=== PATIENT | female | born 1940 | race Caucasian/White ===

== ENCOUNTER 2024-01-05 08:52 | Inpatient (IN) | payer MEDICARE, BC, SELFPAY ==
[2024-01-02] VITALS (11 sets, daily range): BP systolic 118–161; BP diastolic 54–90; BMI 30.9
[2024-01-02 14:26] LABS: % Basophils 0.6 % (0-2); % Immature Granulocytes 0.5 % (0-0.5); % Lymphocytes 9.2 % (20.5-51.1); % Monocytes 12.7 % (1.7-9.3); Absolute Basophils 0.1 10^3/uL (0-0.2); Absolute Immature Granulocytes 0.1 10^3/uL (0-0.05); Absolute Monocytes 1.4 10^3/uL (0.1-0.6); Absolute Neutrophils 8.4 10^3/uL (1.4-6.5); Hematocrit 45.1 % (37.0-47.0); Hemoglobin 15.3 g/dL (12.0-16.0); Mean Corp Hgb Conc. 33.9 g/dL (33.0-37.0); Mean Corpuscular Hgb 30.3 pg (27.0-31.0); Mean Corpuscular Volume 89.3 fL (81.0-99.0); Mean Platelet Volume 10.8 fL (7.4-10.4); Nucleated Red Blood Cells % 0 %; Platelet Count 181 10^3/uL (130-400); Red Blood Cell Count 5.05 10^6/uL (4.20-5.40); Red Cell Dist. Width 15.6 % (11.5-14.5); White Blood Cell Count 10.9 10^3/uL (4.8-10.8)
[2024-01-02 14:30] LABS: COVID-19 Antigen Positive (Negative)
[2024-01-02 14:40] LABS: ALT (SGPT) 87 U/L (0-35); AST (SGOT) 100 U/L (14-36); Albumin 3.9 g/dl (3.5-5.0); Alkaline Phosphatase 79 U/L (38-126); Blood Urea Nitrogen 18 mg/dl (7-17); Calcium 9.2 mg/dl (8.4-10.2); Carbon Dioxide 23 mmol/L (22-30); Chloride 105 mmol/L (98-107); Glucose 150 mg/dl (70-99); Potassium 3.9 mmol/L (3.5-5.1); Sodium 137 mmol/L (135-145); Total Bilirubin 1.2 mg/dl (0.2-1.3); Total Protein 6.7 g/dl (6.3-8.2); eGFR > 60.00
--- NOTE | 2024-01-02 17:47 | ED.GENMED ---
History of Present Illness
General
Chief Complaint: Weakness
Time Seen by Provider: 01/02/24 17:29
Travel History
Have you had any contact with someone who has COVID-19?: No
Do you have any symptoms of coronavirus? Fever > 100 degrees, chills, cough, shortness of breath, sore throat, loss of taste or smell, muscle aches, or headache?: No
History of Present Illness
History of Present Illness:
83-year-old female with history of CHF and HTN presents to the emergency department for evaluation of severe weakness. Patient resides at home with her daughter, typically is able to get herself up out of a chair but was unable to stand even with
assistance today. Patient is noted to be lethargic but arouses to voice, she denies any complaints at the current time. P.o. intake over the weekend notably diminished. Multiple people in the household positive for influenza
Past History
Past History
ED Past Medical History: HTN and Hypercholesterolemia; Negative IDDM, NIDDM, PR or Renal failure
Social History
Tobacco: Non-smoker
Alcohol: None
Drug: None
Living: with family
Employment: Retired
Family History
Family History: Hypertension
Review of Systems
Review of Systems
Allergies reviewed?: Yes
All Other Systems: ROS reviewed and negative except as documented in HPI and ROS
Phy Exam
Physical Exam
Physical Exam:
GEN: Well appearing, NAD, WDWN
HEENT: Oral mucosa moist, no scleral icterus
Cardiac: Regular rate and rhythm, no murmur
Lung: No respiratory distress, no tachypnea, lungs clear to auscultation bilaterally
MSK: No gross deformity or injuries
Skin: Good color, no pallor or jaundice, no rashes
Neuro: Alert to self and place only, disoriented to time. Close all extremities freely without limitation however appears globally weak, no aphasia or dysarthria
Psych: Calm, cooperative
Course
Orders/Labs/Results
Orders:
Orders
01/02/24 14:18
COVID-19 Antigen Urgent
Source: Nasal Swab
Complete Blood Count/With Diff Urgent
Comprehensive Metabolic Panel Urgent
Influenza A+B Rapid Molecular Urgent
CONNIE Source: Nasal Swab
Specimen Description:
01/02/24 17:57
Urinalysis Reflex To Culture Urgent
0.9% Sodium Chloride 500 ml [Nss] 500 ml IV BOLUS
CR Chest - 2 Views Urgent
Comment:
Reason For Exam: covid SOB
01/02/24 17:58
CT Head W/o Iv Contrast Urgent
Comment:
Reason For Exam: AMS
01/02/24 18:29
Venous Blood Gas Urgent
%Oxygen/Room Air: 94
01/02/24 21:09
Admit/Transfer Patient As Directed
Co-Sign Provider:
Level of Care: Observation services
Assign to:: Medical/Surgical
Physician / Group: con
Diagnosis: covid
Code Status As Directed
Resuscitation Status: Full Code
Abnormal Lab Results
01/02/24 01/02/24
14:18 18:29
WBC 10.9 H 10^3/uL
(4.8-10.8)
RDW 15.6 H %
(11.5-14.5)
MPV 10.8 H fL
(7.4-10.4)
Abs Immat Gran (auto) 0.1 H 10^3/uL
(0-0.05)
Absolute Neuts (auto) 8.4 H 10^3/uL
(1.4-6.5)
Absolute Lymphs (auto) 1.0 L 10^3/uL
(1.2-3.4)
Absolute Monos (auto) 1.4 H 10^3/uL
(0.1-0.6)
Neutrophils % 77.0 H %
(42.2-75.2)
Lymphocytes % 9.2 L %
(20.5-51.1)
Monocytes % 12.7 H %
(1.7-9.3)
VBG pCO2 51 H mmHg
(35-48)
VBG pO2 66 H mmHg
(30-50)
BUN 18 H mg/dl
(7-17)
Glucose 150 H mg/dl
(70-99)
AST 100 H U/L
(14-36)
ALT 87 H U/L
(0-35)
SARS-CoV-2 Antigen Positive A
(Negative)
01/02/24 14:18
01/02/24 14:18
Vital Signs
Initial and Last Documented VS:
Initial Vital Signs
Temp Pulse Resp BP Pulse Ox
98.6 F 62 16 149/90 98
01/02/24 13:52 01/02/24 13:52 01/02/24 13:52 01/02/24 13:52 01/02/24 13:52
Last Documented Vital Signs
Temp Pulse Resp BP Pulse Ox
98.6 F 60 23 152/67 97
01/02/24 13:52 01/02/24 20:45 01/02/24 19:00 01/02/24 20:00 01/02/24 20:15
MDM/Problems Addressed
MDM/Problems Addressed:
Patient is profoundly weak and somewhat confused off her baseline. This is likely on the basis of COVID-19. She is not suitable to discharge home as she cannot manage independently. Will admit to the hospitalist service for further management.
She is not hypoxic
*Critical Care Note
Total Time (30-74mins, 75-104mins- exclusive of procedures): Not Applicable
ED Attending Note
-
Portions of this chart may have been created with voice recognition software.� Occasional wrong word or��sound alike� substitutions may have occurred due to the inherent limitations of voice recognition software.
Discharge Plan
Departure
Patient Disposition: Admit
Date of Disposition: 01/02/24
Time of Disposition: 20:46
Presentation/result/management discussed w/ accepting MD/DO: Hospitalist
Discharge Problem:
COVID-19, Generalized weakness
Prescriptions:
No Action
ezetimibe 10 MG tablet
10 mg PO DAILY
losartan 50 MG tablet
50 mg PO DAILY
fluticasone propion-salmeterol [Advair Diskus] 1 EACH blister with device
1 puff inhalation BID
labetalol 200 MG tablet
200 mg PO BID
hydralazine 25 MG tablet
25 mg PO BID
meclizine 25 MG tablet
25 mg PO Q8HPRN PRN (Reason: vertigo/dizziness)
sodium chloride [Saline Nasal] 50 SPRAYS/45 ML aerosol,spray
1 sprays intranasal QIDPRN PRN (Reason: nasal congestion)
omeprazole magnesium [Prilosec OTC] 20 MG tablet,delayed release (DR/EC)
20 mg PO DAILY
tiotropium bromide [Spiriva with HandiHaler] 18 MCG capsule, w/inhalation device
18 mcg inhalation DAILY
vitamins A,C,R-oojo-doeomc [PreserVision AREDS] 1 CAP capsule
1 cap PO HS
cholecalciferol (vitamin D3) 2,000 UNITS tablet
2,000 units PO DAILY
atorvastatin 40 MG tablet
40 mg PO QPM Qty: 30 0RF
aspirin 81 MG tablet,chewable
81 mg PO DAILY Qty: 30 0RF
Referrals:
NONE,* [Family Provider] -
Interventions
Interventions:
*Risk Screen - Suicide Last Done: 01/02/24 17:46
*Neglect/Abuse Screening Last Done: 01/02/24 17:46
ED- Fall Risk Assessment Last Done: 01/02/24 19:50
*ED COVID-19 Vaccine History Last Done: 01/02/24 13:52
ED- Cardiac Assessment Last Done: 01/02/24 19:50
ED- Neurological Assessment Last Done: 01/02/24 19:48
ED- Pulmonary Assessment Last Done: 01/02/24 19:50
Discharge Date and Time
Print Language: VIET[place]ESE
[2024-01-02] MEDS: NSS 500 IV (18:30)
[2024-01-02 18:50] LABS: Venous Blood Gas B.E. 0 mmol/L (-4 to +4); Venous Blood Gas HCO3 26.9 mmol/L (22-27); Venous Blood Gas O2 Sat % 94.2 %; Venous Blood Gas pCO2 51 mmHg (35-48); Venous Blood Gas pH 7.33 (7.32-7.43); Venous Blood Gas pO2 66 mmHg (30-50)
--- NOTE | 2024-01-02 21:13 | HPS.HSE ---
Addendum entered and electronically signed by Sylwia Enriquez MD 01/02/24 21:54:
History of Afib. Continue Eliquis and Amiodarone.
Original Note:
Family Physician
-
Family Physician: * NONE
Chief Complaint
-
weakness
History of Present Illness
83-year-old female past medical history of type II [place], CHF, hypertension, hypercholesterolemia, COPD, GERD, CVA, presenting with severe weakness. Patient normally can get out of the chair on her own but today she was unable to even stand with
assistance. She started having weakness yesterday. Patient was lethargic but arouses to voice. She denies any complaints. Decreased p.o. intake over the weekend. She does have slight cough and sore throat and bodyaches. No chest pain, fevers
or chills. No nausea vomiting or diarrhea. Multiple family members in the household have had similar symptoms but they did not test themselves for COVID.
She did get the COVID-vaccine.
Denies smoking alcohol use.
Medical History
Past Medical History
Past Medical History: Reports Other (type II [place], CHF, hypertension, hypercholesterolemia, COPD, GERD, CVA)
Past Surgical History: Reports None
Social History
Tobacco: Non-smoker
Alcohol: None
Drug: None
Family History
Family History: Not pertinent
Allergies / Home Medications
Allergies reflects when Allergies were last updated in [facility].
Home Medications with original date entered in [facility]
Allergy/Medication List:
Allergies
Allergy/AdvReac Type Severity Reaction Status Date / Time
Penicillins Allergy Hives Verified 01/02/24 13:56
Home Medications
ezetimibe 10 mg tablet 10 mg PO DAILY 02/22/11
cholecalciferol (vitamin D3) 50 mcg (2,000 unit) tablet 2,000 units PO DAILY 08/22/17
fluticasone 250 mcg-salmeterol 50 mcg/dose blistr powdr for inhalation (Advair Diskus) 1 puff inhalation BID 08/22/17
hydralazine 25 mg tablet 25 mg PO BID 08/22/17
labetalol 200 mg tablet 200 mg PO BID 08/22/17
losartan 50 mg tablet 50 mg PO DAILY 08/22/17
meclizine 25 mg tablet 25 mg PO Q8HPRN PRN vertigo/dizziness 08/22/17
omeprazole magnesium 20 mg tablet,delayed release (Prilosec OTC) 20 mg PO DAILY 08/22/17
sodium chloride 0.65 % nasal spray aerosol (Saline Nasal) 1 sprays intranasal QIDPRN PRN nasal congestion 08/22/17
tiotropium bromide 18 mcg capsule with inhalation device (Spiriva with HandiHaler) 18 mcg inhalation DAILY 08/22/17
vitamins A,C,T-njyn-umpolf 4,296 mcg-226 mg-90 mg capsule (PreserVision AREDS) 1 cap PO HS 08/22/17
aspirin 81 mg chewable tablet 81 mg PO DAILY ##30 08/23/17
atorvastatin 40 mg tablet 40 mg PO QPM ##30 08/23/17
Review of Systems
-
History Source: Patient
A 12 point ROS was completed and negative except as noted: Yes
Constitutional: Reports No Symptoms
EENT: Reports See HPI
Respiratory: Reports See HPI
Cardiac: Reports No Symptoms
Abdomen/GI: Reports No Symptoms
: Reports No Symptoms
Musculoskeletal: Reports No Symptoms
Skin: Reports No Symptoms
Neurological: Reports No Symptoms
Endocrine: Reports No Symptoms
Hematologic/Lymphatic: Reports No Symptoms
Psych: Reports No Symptoms
Physical Exam
Vital Signs
Vital Signs
Temp Pulse Resp BP Pulse Ox
98.6 F 60 23 152/67 97
01/02/24 13:52 01/02/24 20:45 01/02/24 19:00 01/02/24 20:00 01/02/24 20:15
Physical Exam
General: Well Developed, Well Nourished and No Apparent Distress
HEENT: NormoCephalic, Moist mucous membranes and Atraumatic
Respiratory: Clear
Cardiac: S1/S2 and Regular Rhythm; No Murmur or Rub
GI: Soft, Non Tender, Non Distended and Normal Bowel Sounds; No Organomegaly
Rectal: Deferred by Provider
Musculoskeletal: No Clubbing, No Cyanosis and No Edema
Skin: No Rash
Neuro: Nonfocal/grossly intact
Laboratory Results
-
01/02/24 14:18
01/02/24 14:18
Laboratory Results
Total Bilirubin 1.2 mg/dl (0.2-1.3) 01/02/24 14:18
AST 100 U/L (14-36) H 01/02/24 14:18
ALT 87 U/L (0-35) H 01/02/24 14:18
Alkaline Phosphatase 79 U/L (38-126) 01/02/24 14:18
Data Reviewed
-
Lab Data: Labs Reviewed by me
Old Records: Reviewed
Impression/Plan
-
IMPRESSION:
PLAN:
# COVID infection
-Influenza negative
-Chest x-ray no evidence of cardiopulmonary disease
-Patient not hypoxic
-CT head shows no acute abnormality
-PT/OT
# Transaminitis secondary to COVID
-Continue to monitor
History of type II [place]
-Continue aspirin
Chronic HFpEF
Essential hypertension
-Continue hydralazine, labetalol, losartan
Hypercholesterolemia
-Continue statin, Zetia
COPD
-Continue Advair, Spiriva
GERD
-Continue omeprazole
History of CVA
-Continue aspirin, statin
Full code
DVT prophylaxis�heparin
Regular diet
[2024-01-03] VITALS (8 sets, daily range): BP systolic 162–191; BP diastolic 70–93; BMI 30.9
[2024-01-03] MEDS: LIPITOR 40 MG PO (00:42)
[2024-01-03 06:51] LABS: % Basophils 0.7 % (0-2); % Eosinophils 0.1 % (0-6); % Immature Granulocytes 0.7 % (0-0.5); % Lymphocytes 12.7 % (20.5-51.1); % Monocytes 13.9 % (1.7-9.3); % Neutrophils 71.9 % (42.2-75.2); Absolute Basophils 0.1 10^3/uL (0-0.2); Absolute Immature Granulocytes 0.1 10^3/uL (0-0.05); Absolute Lymphocytes 0.9 10^3/uL (1.2-3.4); Absolute Neutrophils 5.2 10^3/uL (1.4-6.5); Hematocrit 38.8 % (37.0-47.0); Hemoglobin 13.2 g/dL (12.0-16.0); Mean Corpuscular Hgb 30.4 pg (27.0-31.0); Mean Corpuscular Volume 89.4 fL (81.0-99.0); Nucleated Red Blood Cells % 0 %; Red Blood Cell Count 4.34 10^6/uL (4.20-5.40); Red Cell Dist. Width 15.7 % (11.5-14.5); White Blood Cell Count 7.3 10^3/uL (4.8-10.8)
[2024-01-03 07:07] LABS: ALT (SGPT) 511 U/L (0-35); AST (SGOT) 601 U/L (14-36); Albumin 3.2 g/dl (3.5-5.0); Alkaline Phosphatase 71 U/L (38-126); Blood Urea Nitrogen 21 mg/dl (7-17); Calcium 8.7 mg/dl (8.4-10.2); Carbon Dioxide 23 mmol/L (22-30); Chloride 110 mmol/L (98-107); Estimated Creatinine Clearance 59 ml/min; Glucose 87 mg/dl (70-99); Potassium 3.7 mmol/L (3.5-5.1); Sodium 137 mmol/L (135-145); Total Bilirubin 1.4 mg/dl (0.2-1.3); Total Protein 5.7 g/dl (6.3-8.2); eGFR > 60.00
[2024-01-03 08:07] LABS: Mean Platelet Volume 10.2 fL (7.4-10.4)
[2024-01-03 08:08] LABS: Platelet Count 129 10^3/uL (130-400)
[2024-01-03] MEDS: PACERONE 200 MG PO (08:49)
[2024-01-03] MEDS: ZETIA 10 MG PO (08:56)
[2024-01-03] MEDS: SYNTHROID 25 MCG PO (08:56)
[2024-01-03] MEDS: ELIQUIS 5 MG PO ×2 (08:56→20:24)
[2024-01-03] MEDS: LOPRESSOR 100 MG PO ×2 (08:56→20:24)
[2024-01-03] MEDS: COZAAR 25 MG PO (08:56)
--- NOTE | 2024-01-03 12:09 | W.PN.HOSP.TC ---
Today's Communication/Plan
-
See plan above
Assessment / Plan
Assessment / Plan
# COVID infection
-Influenza negative
-Chest x-ray no evidence of cardiopulmonary disease
-Patient not hypoxic
-CT head shows no acute abnormality
-PT/OT
- Will consult ID for indication of treatments especially with severe transaminitis. No indication of COVID-19 therapeutics from pulmonary standpoint.
# Acute Transaminitis which is worsening. Significant rise. No GI symptoms.
-COVID-19 candidate transaminitis better elevation is significant and would evaluate further. Check an ultrasound of the biliary tract. Hold Lipitor. Consult GI. Check hepatitis serology.
# ? Syncope-based on patient history. Trying to reach the daughter to obtain more information. Check EKG. Check orthostatic blood pressure readings. Follow on telemetry.
History of type II [place]
-Continue aspirin
Chronic HFpEF-clinically compensated
Essential hypertension
-Continue hydralazine, labetalol, losartan
Hypercholesterolemia
-Continue statin, Zetia
COPD
-Continue Advair, Spiriva
GERD
-Continue omeprazole
History of CVA
-Continue aspirin, statin
Full code
DVT prophylaxis�heparin
Regular diet
DW son
Await to speak to daughter
Total time spent on today's encounter was 52 minutes which included time spent in counseling the patient/family regarding diagnosis and treatment plan as listed above, goals of care, and symptom management. Case was discussed with nursing staff,
specialists, . All labs and imaging personally reviewed by me. Remainder the time spent in detailed review of previous records, lab data, imaging, and other medical provider documentation.
Anticipated Discharge: > 48 hours
Subjective/Interval History
-
Date of Service: January 03, 2024
She states she is here because she passed out at home. She has associated weakness.
She was not able to provide much details about passing out but she thinks she was in the kitchen heating up her breakfast and then she passed out ; her daughter was present apparently. She denies premonitory dizziness or lightheadedness.
Denies any chest pain or palpitations. Not short of breath.
Her granddaughter was sick over the weekend. She is with family over . She is having runny nose. Denies any sore throat or cough.
Appetite is okay but no nausea vomiting or abdominal pain. Denies any prior history of biliary disease.
No fever or chills.
Objective Data
-
Labs:
Laboratory Results
01/03/24
06:36
WBC 7.3
Hgb 13.2
Hct 38.8
Plt Count 129 L D
Sodium 137
Potassium 3.7
Chloride 110 H
Carbon Dioxide 23
BUN 21 H
Creatinine 0.7
Glucose 87
Calcium 8.7
Total Bilirubin 1.4 H
AST 601 H*
ALT 511 H*
Alkaline Phosphatase 71
Vital Signs:
Vital Signs
Temp Pulse Resp BP Pulse Ox
98.3 F 60 18 162/77 96
01/03/24 09:00 01/03/24 09:00 01/03/24 09:00 01/03/24 09:00 01/03/24 11:16
I&O
01/02/24 01/03/24 01/04/24
06:59 06:59 06:59
Intake Total 60 / 60
Balance 60 / 60
Review of Systems
-
Constitutional: Denies Fever or Chills
Genitourinary: Denies Dysuria
Neuro: Denies Dizzy or Headache
Physical Exam
-
General: No Apparent Distress
HEENT: Moist Mucous Membranes
Respiratory: Clear to Auscultation; Negative Wheezes or Crackles
Cardiac: Regular Rhythm and S1/S2
GI: Soft, Nontender, Nondistended, Normal Bowel Sounds and Other (no abodminal brusing)
Musculoskeletal: No Edema
Neuro: AO x 3 and No Motor Deficits; Negative Tremors
Psych: Calm; Negative Confused or Agitated
Data Reviewed
-
Labs: Labs Reviewed by me
--- NOTE | 2024-01-03 13:28 | CON.GI ---
Addendum entered and electronically signed by Lynn Vallejo MD 01/03/24 18:05:
I saw and examined the patient.
The CASING PULLER or PA's note was reviewed and I agree with the note.
Comment: 83 yo F pmh as below here with weakness, decreased po intake, found to be COVID + with elevated LFTs.
Patient poor historian (oriented x1-2 does not know where she sleepy, minimally answering questions).
US normal
hep studies, plt, inr ordered
trend LFTS
suspect related to covid vs questionable syncope perhaps had hypotension
Original Note:
Consultation
-
Date/Time Consultation Requested: 01/03/24 1230
Date/Time Consultation Performed: 01/03/24 1330
Requesting Provider: Raimundo Rodriguez MD
Performing Provider: JUAN Degroot, Nidia Vallejo MD
Reason for Consultation: increased LFT's
Medical History
Chief Complaint / HPI
Chief Complaint: weakness
History of Present Illness:
Pt is a 83yo present with hx CHF, afib on Eliquis, DM type II, [place], HTN, COPD, GERD, CVA presents with severe weakness with decreased oral intake over weekend. On admission noted + covid with initial LFT's with bili 1.2, AST 100, ALT 87, alk phos
79. However after admission patient with further rise in LFT's to bili 1.4, AST 601, alt 511, and alk phos 71. No hx prior liver issues. Per daughter unsure about any medication changes as just came back from [place]. She is on chronic
Midodrine but unclear when started. There was also question of syncope but daughter denies and states just sever weakness. Family admits to other family member being sick prior to onset.
She otherwise denies dysphagia, GERD, nausea, vomiting, abdominal pain, diarrhea, constipation, or rectal bleeding. Family unsure about prior EGD/colonoscopy. US with cholelithiasis and renal cysts.
Past Medical History
Past Medical History: Arrhythmias (afib on eliquis ), CHF, COPD, CVA, GERD, HTN, Hypercholesterolemia and NIDDM
Social History
Tobacco: Former Smoker
Alcohol: None
Drug: None
Living: With Family (6 months with daughter in [place] and 6 months in [place] returned 1 week ago)
Employment: Retired
Family History
Family History: Other (no family hx colon CA or liver problems)
Allergies / Home Medications
Allergy/AdvReac Type Severity Reaction Status Date / Time
Penicillins Allergy Hives Verified 01/02/24 13:56
�Medication �Instructions �Recorded
ezetimibe 10 mg tablet 10 mg PO DAILY 02/22/11
amiodarone 200 mg tablet 200 mg PO DAILY 01/02/24
apixaban 5 mg tablet (Eliquis) 5 mg PO BID 01/02/24
atorvastatin 40 mg tablet 40 mg PO HS 01/02/24
levothyroxine 25 mcg tablet 25 mcg PO DAILY 01/02/24
losartan 25 mg tablet 25 mg PO DAILY 01/02/24
metoprolol tartrate 100 mg tablet 100 mg PO BID 01/02/24
midodrine 2.5 mg tablet 2.5 mg PO TID 01/02/24
Review of Systems
-
History Source: Patient and Family
Constitutional: Reports Fatigue
EENT: Reports No Symptoms
Respiratory: Reports No Symptoms
Cardiac: Reports No Symptoms
Abdomen/GI: Reports No Symptoms
: Reports No Symptoms
Musculoskeletal: Reports No Symptoms
Neurological: Reports Weakness
Endocrine: Reports No Symptoms
Hematologic/Lymphatic: Reports No Symptoms
Vital Signs
Temp Pulse Resp BP Pulse Ox
98.3 F 60 18 183/70 93
01/03/24 09:00 01/03/24 12:49 01/03/24 12:49 01/03/24 12:49 01/03/24 12:49
Physical Exam
Exam
General: Other (elderly female with noted weakness and limited verbal in exam )
HEENT: Normocephalic and Anicteric
Respiratory: Clear
Cardiac: Regular Rhythm
GI: Soft, Non Tender and Non Distended
Musculoskeletal: No Clubbing and No Cyanosis
Skin: Warm and Dry
Neuro: Awake and Other (opens eyes to voice with lethargy in exam answers some questions appropriately)
Psych: Calm
Results
WBC 7.3 10^3/uL (4.8-10.8) 01/03/24 06:36
Hgb 13.2 g/dL (12.0-16.0) 01/03/24 06:36
Hct 38.8 % (37.0-47.0) 01/03/24 06:36
MCV 89.4 fL (81.0-99.0) 01/03/24 06:36
Plt Count 129 10^3/uL (130-400) L D 01/03/24 06:36
Absolute Neuts (auto) 5.2 10^3/uL (1.4-6.5) 01/03/24 06:36
Sodium 137 mmol/L (135-145) 01/03/24 06:36
Potassium 3.7 mmol/L (3.5-5.1) 01/03/24 06:36
Chloride 110 mmol/L (98-107) H 01/03/24 06:36
Carbon Dioxide 23 mmol/L (22-30) 01/03/24 06:36
BUN 21 mg/dl (7-17) H 01/03/24 06:36
Creatinine 0.7 mg/dL (0.6-1.0) 01/03/24 06:36
Calcium 8.7 mg/dl (8.4-10.2) 01/03/24 06:36
Total Bilirubin 1.4 mg/dl (0.2-1.3) H 01/03/24 06:36
AST 601 U/L (14-36) H* 01/03/24 06:36
ALT 511 U/L (0-35) H* 01/03/24 06:36
Alkaline Phosphatase 71 U/L (38-126) 01/03/24 06:36
Diagnostic Image Results:
01/03/24 US abdomen
1). Cholelithiasis
2.). 3.4 cm complex left renal cyst
Prior GI Procedures:
EGD: family unsure about prior testing
Colonoscopy: family unsure about prior testing
Assessment / Plan
-
Pt is a 83yo present with hx CHF, DM type II, [place], HTN, COPD, GERD, CVA presents with severe weakness with decreased oral intake over weekend. On admission noted + covid with initial LFT's with bili 1.2, AST 100, ALT 87, alk phos 79. However after
admission patient with further rise in LFT's to bili 1.4, AST 601, alt 511, and alk phos 71. 4/2 US with cholelithiasis and renal cyst.
-increased LFT's
-covid +
-diffuse weakness
-mild thrombocytopenia
-cholelithiasis
other medical problems:
-CHF
-DM
-HTN
-COPD
-GERD
-CVA
PLAN:
etiology of increased LFT's unclear --no documented hypotension since admission but diffuse weakness and hx midodrine use with possible shock liver secondary to underlying illness with covid + vs other
US abdomen stable with cholelithiasis no not duct dilation or pain on exam
check hepatitis panel
trend LFT's
add repeat platelets for am and add INR in AM
updated daughter to check any recent change in medication
pt currently on Midodrine but unclear when and why started
add TSH
-
-
Thank you for consultation and allowing me to participate in the patient's care. Please call the weatherization and housing inspector GI physician during the after hours with any questions or concerns.
--- NOTE | 2024-01-03 14:18 | CON.ID ---
Consultation
-
Date/Time Consultation Requested: January 03, 2024 1221
Date/Time Consultation Performed: January 03, 2024 1420
Requesting Provider: Dr. Raimundo Rodriguez
Performing Provider: Dr. Ronna Hernández
Reason for Consultation: COVID
Chief Complaint / Past History
Chief Complaint
Weakness
History of Present Illness
History obtained from the patient as well as from her daughter at bedside. 83-year-old female with history of diabetes mellitus, hypertension, COPD, who developed acute onset of weakness yesterday. She was unable to get up from a chair. She came
to the ER today and she tested positive for COVID. LFTs noted to be elevated. Patient is unsure when she last got her COVID-vaccine. Patient reports no headache, positive rhinorrhea, mild cough. No known fevers or chills. Appetite has been
poor. No nausea, vomiting or diarrhea. Patient's daughter and son-in-law recently ill with upper respiratory symptoms. Son-in-law tested negative for COVID. Daughter did not test herself.
Past History
Additional Past Medical History:
Diabetes mellitus type 2
Hypertension
Dyslipidemia
COPD
CVA
CHF
Allergy History:
Penicillins Allergy (Verified 01/02/24 13:56)
Hives
Medications Reviewed: Yes
Current Antibiotics:
none
Social History
Tobacco: Non-Smoker
Alcohol: None
Drug: None
Living: With Family
Family History
Family History: Not Pertinent
Review of Systems
Review of Systems
General: Change in Appetite
HEENT: Sinus Problems; Negative Headache or Pharyngitis
Cardiovascular: Negative Chest Pain
Respiratory: Cough; Negative Dyspnea or Sputum Production
Gasteroenterology: Negative Nausea or Vomiting
Genital / Urological: Negative Dysuria or Flank Pain
Endocrine: Weakness and Fatigue
Neurological: Negative Headache or Dizziness
All systems: All other systems were reviewed and were negative
Vital Signs
Temp Pulse Resp BP Pulse Ox
98.3 F 60 18 183/70 93
01/03/24 09:00 01/03/24 12:49 01/03/24 12:49 01/03/24 12:49 01/03/24 12:49
Physical Exam
Physical Exam
Constitutional: Non-toxic
Eyes: No Conjunctival Hemorrhage and Sclera Anicteric
Pharynx: Benign
Cardiovascular: Regular Rate and S1/S2
Pulmonary: Clear
Gastrointestinal: Soft, Non Tender, Non Distended and Normal Bowel Sounds
Genito-Urinary: Negative CVA Tenderness
Extremities: Negative Edema
Skin: Negative Rash
Neurological: AO x 3
Lab / Diagnostic Study Results
01/03/24 06:36
01/03/24 06:36
Abs Immat Gran (auto) 0.1 10^3/uL (0-0.05) H 01/03/24 06:36
Absolute Neuts (auto) 5.2 10^3/uL (1.4-6.5) 01/03/24 06:36
Absolute Lymphs (auto) 0.9 10^3/uL (1.2-3.4) L 01/03/24 06:36
Absolute Monos (auto) 1.0 10^3/uL (0.1-0.6) H 01/03/24 06:36
Absolute Basos (auto) 0.1 10^3/uL (0-0.2) 01/03/24 06:36
Immature Gran % 0.7 % (0-0.5) H 01/03/24 06:36
Neutrophils % 71.9 % (42.2-75.2) 01/03/24 06:36
Lymphocytes % 12.7 % (20.5-51.1) L 01/03/24 06:36
Monocytes % 13.9 % (1.7-9.3) H 01/03/24 06:36
Eosinophils % 0.1 % (0-6) 01/03/24 06:36
Basophils % 0.7 % (0-2) 01/03/24 06:36
Microbiology Results
Micro:
01/02/24 14:18 Influenza Types A & B (PAM) - Final
Nasal Swab Negative for Influenza A & B, NAAT
Negative results must be combined with clinical observations
and patient history.
Nucleic Acid Amplification test (NAAT)performed on the
[employer] platform.
01/02/24 CXR: No evidence of active cardiopulmonary disease.
01/02/[address]: No evidence of acute intracranial abnormality.
Assessment / Plan
# Symptomatic mild COVID infection
-Symptom onset 01/02/2024
-COVID + 01/03/24
- CXR normal.
-Oxygenating well.
- Avoid Paxlovid due to drug-drug interaction with her meds.
-Start molnupiravir 800mg po bid x 5 days.
-Follow clinically
# Acute transaminitis - likely due to COVID
Abd US: cholelithiasis
--- NOTE | 2024-01-03 14:36 | PTCARENOTE ---
Pt remains very drowsy, poor oral intake. Able to take meds whole w/ sips but uninterested in eating or drinking. Oriented self and 'hospital', follows simple commands, amble to turn in bed. Daughter at bedside, update given. BP remains elevated.
Michael notified of poor PO intake and BP.
[2024-01-03] MEDS: D5/0.45%NACL 1000 IV (15:16)
[2024-01-03 16:17] LABS: Direct Bilirubin 0.5 mg/dl (0.0-0.4)
--- NOTE | 2024-01-03 16:25 | CM ---
Cm reviewed medical records. CM met with patient and daughter in room. Patient confirmed demographics. Patient lives with her two daughters,(one in [place] and one in [facility]). Patient has had [employer] pay aides in the past. Patient has not
had a history of SNF> patient uses a rollator, can and raised toilet seat.
Patient does not have a PCP in [facility]. Patient's daughter would be agreeable to SNF if needed pending PT evaluation. Daughter will research SNF choices via Medicare. gov if needed.
CM confirmed with hospitalist plan for inpatient admission.
PLAN: Pending PT evaluation.
[2024-01-03 17:28] LABS: TSH 1.36 uIU/ml (0.47-4.68)
[2024-01-03] MEDS: MOLNUPIRAVIR (EUA) 800 MG PO (17:29)
--- NOTE | 2024-01-03 18:05 | W.PN.UPDATE ---
Update Note
Progress Note Update
billing purposes
[2024-01-03 18:06] LABS: Urine Albumin Trace (Neg - Trace); Urine Bilirubin Negative (Negative); Urine Character Clear (Clear); Urine Color Yellow; Urine Glucose Negative (Negative); Urine Ketone Negative (Negative); Urine Leukocyte Negative (Negative); Urine Nitrite Negative (Negative); Urine Occult Blood Negative (Negative); Urine Specific Gravity 1.025 (<1.030); Urine Urobilinogen 2+ (Neg - 1+)
[2024-01-03 20:58] LABS: Troponin I 0.018 ng/ml
[2024-01-04] VITALS (19 sets, daily range): BP systolic 119–199; BP diastolic 56–96; PULSE 61–70; O2SAT 93–94; BMI 32.5
[2024-01-04 04:46] LABS: Hemoglobin 13.4 g/dL (12.0-16.0); Mean Corp Hgb Conc. 33.5 g/dL (33.0-37.0); Mean Corpuscular Hgb 30.2 pg (27.0-31.0); Mean Corpuscular Volume 90.1 fL (81.0-99.0); Mean Platelet Volume 10.7 fL (7.4-10.4); Platelet Count 141 10^3/uL (130-400); Red Blood Cell Count 4.44 10^6/uL (4.20-5.40); Red Cell Dist. Width 15.7 % (11.5-14.5); White Blood Cell Count 5.5 10^3/uL (4.8-10.8)
[2024-01-04 05:12] LABS: Troponin I 0.016 ng/ml
[2024-01-04 05:27] LABS: ALT (SGPT) 535 U/L (0-35); AST (SGOT) 463 U/L (14-36); Albumin 3.2 g/dl (3.5-5.0); Alkaline Phosphatase 73 U/L (38-126); Blood Urea Nitrogen 19 mg/dl (7-17); Calcium 8.8 mg/dl (8.4-10.2); Carbon Dioxide 25 mmol/L (22-30); Chloride 106 mmol/L (98-107); Estimated Creatinine Clearance 68 ml/min; Glucose 100 mg/dl (70-99); Potassium 3.4 mmol/L (3.5-5.1); Sodium 136 mmol/L (135-145); Total Protein 5.8 g/dl (6.3-8.2); eGFR > 60.00
[2024-01-04 05:54] LABS: Hepatitis B Surface Antigen Negative (Negative)
[2024-01-04 05:57] LABS: Hepatitis A IgM Antibody Negative (Negative); Hepatitis B Core Ab, IgM Negative (Negative)
[2024-01-04 06:11] LABS: Hepatitis B Core Ab, Total Negative (Negative); Hepatitis B Surface Antibody Negative; Hepatitis C Antibody Negative (Negative)
[2024-01-04 06:24] LABS: Hepatitis A Antibody, Total Positive (Negative)
--- NOTE | 2024-01-04 08:36 | W.PN.GI.CBS2 ---
Addendum entered and electronically signed by Lynn Vallejo MD 01/04/24 14:59:
I saw and examined the patient.
The [employer] or PA's note was reviewed and I agree with the note.
Comment: 83 yo F here with COVID abnormal LFTs.
Suspect LFTs due to COVID.
DC planning currnetly - recommend repeat LFTs 1 week on dc.
Original Note:
Today's Communication / Plan
-
etiology of increased LFT's unclear --no documented hypotension but did miss midodrine with hx orthostatic hypotension AM of admission with possible shock liver, vs covid related vs other
US abdomen stable with cholelithiasis no not duct dilation and continued no pain on exam
more alert and eating breakfast this am but still confused to place
hepatitis panel neg
trend LFT's-- improved trend today -- on discharge repeat LFT 1-2 weeks if not normal consider further serology work up
platelets normal, INR 1.4 in setting of chronic Eliquis use
TSH normal 1.36
per ID -- started molnupiravir 800mg po bid x 5 days
updated daughter
Assessment / Plan
-
Pt is a 83yo present with hx CHF, afib on Eliquis, orthostatic hypotension, DM type II, [place], HTN, COPD, GERD, CVA presents with severe weakness with decreased oral intake over weekend. On admission noted + covid with initial LFT's with bili 1.2,
AST 100, ALT 87, alk phos 79. However after admission patient with further rise in LFT's to bili 1.4, AST 601, alt 511, and alk phos 71. 4/2 US with cholelithiasis and renal cyst.
-increased LFT's
-covid +
-diffuse weakness
-mild thrombocytopenia
-cholelithiasis
-hx orthostatic hypotension on chronic midodrine last 2 years
other medical problems:
-afib on Eliquis
-CHF
-DM
-HTN
-COPD
-GERD
-CVA
Laboratory Tests
01/02/24 01/03/24 01/04/24
14:18 06:36 04:26
Total Bilirubin 1.2 1.4 H 1.0
Direct Bilirubin 0.5 H
AST 100 H 601 H* 463 H
ALT 87 H 511 H* 535 H*
Alkaline Phosphatase 79 71 73
PLAN:
etiology of increased LFT's unclear --no documented hypotension but did miss midodrine with hx orthostatic hypotension AM of admission with possible shock liver, vs covid related vs other
US abdomen stable with cholelithiasis no not duct dilation and continued no pain on exam
more alert and eating breakfast this am but still confused to place
hepatitis panel neg
trend LFT's-- improved trend today on discharge repeat LFT 1-2 weeks if not normal consider further serology work up
platelets normal, INR 1.4 in setting of chronic Eliquis use
TSH normal 1.36
per ID -- started molnupiravir 800mg po bid x 5 days
updated daughter
Subjective
Subjective
Date of Service: January 04, 2024
01/01 small brown stool, on regular diet still with confusion, slight improved alterness
Objective
Data Reviewed
Laboratory Data:
Laboratory Results
01/04/24 04:26
01/04/24 04:26
Laboratory Results
PT 17.0 Sec (11.4-14.6) H 01/04/24 04:26
INR 1.40 01/04/24 04:26
Total Bilirubin 1.0 mg/dl (0.2-1.3) 01/04/24 04:26
AST 463 U/L (14-36) H 01/04/24 04:26
ALT 535 U/L (0-35) H* 01/04/24 04:26
Alkaline Phosphatase 73 U/L (38-126) 01/04/24 04:26
Vital Signs and I&O:
Vital Signs
Temp Pulse Resp BP Pulse Ox
98.3 F 60 24 189/72 94
01/04/24 03:05 01/04/24 03:00 01/04/24 03:00 01/04/24 03:00 01/04/24 03:00
I&O
01/03/24 01/04/24 01/05/24
06:59 06:59 06:59
Intake Total 60 / 60
Balance 60 / 60
Physical Exam
Physical Exam
HEENT: Anicteric
Cardiology: Normal Sinus Rhythm
Pulmonary: Clear
GI: Soft, Non Distended and Non Tender
Extremities: No Edema
Neuro: Other (confused, more awake than on exam 01/02 )
[2024-01-04] MEDS: COZAAR 25 MG PO (10:09)
[2024-01-04] MEDS: LOPRESSOR 100 MG PO ×2 (10:09→21:15)
[2024-01-04] MEDS: PACERONE 200 MG PO (10:09)
[2024-01-04] MEDS: ELIQUIS 5 MG PO ×2 (10:09→21:16)
[2024-01-04] MEDS: MOLNUPIRAVIR (EUA) 800 MG PO ×2 (10:10→21:16)
[2024-01-04] MEDS: D5/0.45%NACL 1000 IV (10:14)
[2024-01-04] MEDS: ZETIA 10 MG PO (10:24)
[2024-01-04] MEDS: SYNTHROID PO (11:20)
--- NOTE | 2024-01-04 11:44 | W.PN.HOSP.TC ---
Addendum entered and electronically signed by Raimundo Rodriguez MD 01/04/24 11:53:
Hypokalemia -replete
Original Note:
Today's Communication/Plan
-
DC planning
Assessment / Plan
Assessment / Plan
# COVID infection
-Influenza negative
-Chest x-ray no evidence of cardiopulmonary disease
-Patient not hypoxic
-CT head shows no acute abnormality
-PT/OT
-cw antiviral for 5 days per ID .
# Acute Transaminitis which is worsening. Significant rise. No GI symptoms.
-COVID-19 can cause transaminitis but elevation is significant and would evaluate further. ultrasound of the biliary tract shows no biliary obstruction. Cholelithiasis noted. Improving LFTs. Possibly related to viral infection. Repeat next
week. Appreciate GI input. Hold statins till next blood test.
# No Syncope-based on story from daughter .
History of type II [place]
-Continue aspirin
Chronic HFpEF-clinically compensated
Essential hypertension
-Continue metoprolol, losartan -consider going up on Losartan as needed
- Hold Midodrine with supine hypertension
Hypercholesterolemia
-Continue Zetia, hold statins
COPD
-Continue Advair, Spiriva
GERD
-Continue omeprazole
History of CVA
-Continue aspirin,hold statin
Full code
DVT prophylaxis�heparin
Regular diet
DW daughter at bedside
PT recommends rehab
CM to look into disposition
Medically stable for DC if bed available
Anticipated Discharge: Today
Subjective/Interval History
-
Date of Service: January 04, 2024
Patient starting to feel well. More energy. Last week. Able to ambulate to the bathroom.
Denies any fever. Mild cough. No shortness of breath.
Improved appetite. No nausea vomiting. No abdominal pain.
Discussed with daughter at bedside who was with the patient. Admission. No evidence of syncope. No passing out. She was just weak and went down.
Objective Data
-
Labs:
Laboratory Results
01/04/24
04:26
WBC 5.5
Hgb 13.4
Hct 40.0
Plt Count 141
PT 17.0 H
INR 1.40
Sodium 136
Potassium 3.4 L
Chloride 106
Carbon Dioxide 25
BUN 19 H
Creatinine 0.6
Glucose 100 H
Calcium 8.8
Total Bilirubin 1.0
AST 463 H
ALT 535 H*
Alkaline Phosphatase 73
Vital Signs:
Vital Signs
Temp Pulse Resp BP Pulse Ox
98.3 F 60 24 189/72 94
01/04/24 03:05 01/04/24 03:00 01/04/24 03:00 01/04/24 03:00 01/04/24 03:00
I&O
01/03/24 01/04/24 01/05/24
06:59 06:59 06:59
Intake Total 60 / 60
Balance 60 / 60
Review of Systems
-
Constitutional: Denies Fever
EENT: Denies Sore Throat
Cardiac: Denies Chest Pain
Neuro: Denies Dizzy or Headache
Physical Exam
-
General: No Apparent Distress
HEENT: Moist Mucous Membranes
Respiratory: Clear to Auscultation
Cardiac: Regular Rhythm and S1/S2; Negative Tachycardic
GI: Soft, Nontender, Nondistended and Normal Bowel Sounds
Neuro: AO x 3
Psych: Calm; Negative Confused or Agitated
Data Reviewed
-
Labs: Labs Reviewed by me
[2024-01-04] MEDS: KCL 20 MEQ PO (12:53)
--- NOTE | 2024-01-04 14:59 | W.PN.UPDATE ---
Update Note
Progress Note Update
billing purposes
--- NOTE | 2024-01-04 15:41 | W.PN.ID1 ---
Date of Service
Date of Service: January 04, 2024
Today's Communication
Continue molnupiravir 800mg po bid to complete 5 days.
Assessment / Plan
# Symptomatic mild COVID infection
-Symptom onset 01/02/2024
-COVID + 01/03/24
- CXR normal.
-Oxygenating well.
- Avoid Paxlovid due to drug-drug interaction with her meds.
- Continue molnupiravir 800mg po bid to complete 5 days.
-Follow clinically
# Acute transaminitis - likely due to COVID
LFT's trending down
Abd US: cholelithiasis
Chief Complaint
-: Other (COVID)
Subjective / Review of Systems
More alert today. Pt reports feeling better. Daughter at bedside who agrees.
Vital Signs / Physical Exam
Vital Signs
Vital Signs
Temp Pulse Resp BP Pulse Ox
98.5 F 62 16 192/96 96
01/04/24 15:29 01/04/24 15:29 01/04/24 15:29 01/04/24 15:29 01/04/24 15:29
Physical Exam
Constitutional: No Acute Distress and Comfortable
Pulmonary: Clear
Gastrointestinal: Soft, Non Tender and Non Distended
Neurological: AO x 3
Objective Data
Lab Data
Lab Results
01/04/24 04:26
01/04/24 04:26
PT 17.0 Sec (11.4-14.6) H 01/04/24 04:26
INR 1.40 01/04/24 04:26
Estimated Creat Clear 68 ml/min 01/04/24 04:26
Total Bilirubin 1.0 mg/dl (0.2-1.3) 01/04/24 04:26
AST 463 U/L (14-36) H 01/04/24 04:26
ALT 535 U/L (0-35) H* 01/04/24 04:26
Alkaline Phosphatase 73 U/L (38-126) 01/04/24 04:26
Most recent labs reviewed.
Micro Results:
01/02/24 14:18 Influenza Types A & B (PAM) - Final
Nasal Swab Negative for Influenza A & B, NAAT
Negative results must be combined with clinical observations
and patient history.
Nucleic Acid Amplification test (NAAT)performed on the
[employer] platform.
01/02/24 CXR: No evidence of active cardiopulmonary disease.
01/02/[address]: No evidence of acute intracranial abnormality.
--- NOTE | 2024-01-04 16:16 | PTCARENOTE ---
Received patient at 1515 accompanied by daughter. Awake and alert , did not know time. Denied any pain or discomfort at present. Oriented to unit, dietary , nurse call wilkerson , tv remote. Resting at present , denies any pain or discomfort
[2024-01-05] MEDS: APRESOLINE 5 MG IV ×2 (00:25→02:31)
[2024-01-05 02:01] VITALS: BP 195/77
[2024-01-05 02:08] VITALS: BP 192/72
[2024-01-05 06:00] VITALS: BMI 30.2
[2024-01-05] MEDS: SYNTHROID 25 MCG PO (06:17)
[2024-01-05 07:30] VITALS: BP 132/73
[2024-01-05 07:53] LABS: Chloride 104 mmol/L (98-107); Potassium 3.6 mmol/L (3.5-5.1); Sodium 137 mmol/L (135-145)
[2024-01-05 08:00] VITALS: BP 132/73; BP 190/82; PULSE 61
[2024-01-05 08:02] LABS: ALT (SGPT) 389 U/L (0-35); AST (SGOT) 234 U/L (14-36); Albumin 3.3 g/dl (3.5-5.0); Alkaline Phosphatase 80 U/L (38-126); Blood Urea Nitrogen 15 mg/dl (7-17); Calcium 8.8 mg/dl (8.4-10.2); Carbon Dioxide 21 mmol/L (22-30); Direct Bilirubin 0.5 mg/dl (0.0-0.4); Estimated Creatinine Clearance 67 ml/min; Glucose 121 mg/dl (70-99); Total Bilirubin 1.1 mg/dl (0.2-1.3); eGFR > 60.00
[2024-01-05] MEDS: COZAAR 25 MG PO (08:37)
[2024-01-05] MEDS: ZETIA 10 MG PO (08:37)
[2024-01-05] MEDS: ELIQUIS 5 MG PO ×2 (08:37→20:09)
[2024-01-05] MEDS: MOLNUPIRAVIR (EUA) 800 MG PO ×2 (08:40→20:08)
[2024-01-05] MEDS: LOPRESSOR 100 MG PO ×2 (08:40→20:09)
[2024-01-05] MEDS: PACERONE 200 MG PO (08:40)
--- NOTE | 2024-01-05 11:26 | W.PN.HOSP.TC ---
Today's Communication/Plan
-
DC
Assessment / Plan
Assessment / Plan
# COVID infection
-Influenza negative
-Chest x-ray no evidence of cardiopulmonary disease
-Patient not hypoxic
-CT head shows no acute abnormality
-PT/OT
-cw antiviral for 5 days per ID .
# Acute Transaminitis which is worsening. Significant rise. No GI symptoms.
-COVID-19 can cause transaminitis but elevation is significant and would evaluate further. ultrasound of the biliary tract shows no biliary obstruction. Cholelithiasis noted. Improving LFTs. Possibly related to viral infection. Repeat next
week. Appreciate GI input. Hold statins till next blood test.
History of type II [place]
-Continue aspirin
Chronic HFpEF-clinically compensated
Essential hypertension
- Continue metoprolol, increase losartan
- Hold Midodrine with supine hypertension
Hypercholesterolemia
-Continue Zetia, hold statins
COPD
-Continue Advair, Spiriva
GERD
-Continue omeprazole
History of CVA
-Continue aspirin,hold statin
Full code
DVT prophylaxis�heparin
Regular diet
DW daughters at bedside
PT recommends rehab
CM to look into disposition
Medically stable for DC
Anticipated Discharge: Today
Subjective/Interval History
-
Date of Service: January 05, 2024
Improving but still not at baseline strength. PT recommending rehab.
No fever or chills. No sore throat. Not short of breath.
No nausea vomiting. Tolerating diet.
She has macular degeneration. She had injections to the eye for a very long time. She experienced visual hallucination today .
Objective Data
-
Labs:
Laboratory Results
01/05/24
07:12
Sodium 137
Potassium 3.6
Chloride 104
Carbon Dioxide 21 L
BUN 15
Creatinine 0.6
Glucose 121 H
Calcium 8.8
Total Bilirubin 1.1
AST 234 H
ALT 389 H
Alkaline Phosphatase 80
Vital Signs:
Vital Signs
Temp Pulse Resp BP Pulse Ox
98.6 F 84 24 132/72 94
01/05/24 07:30 01/05/24 08:37 01/05/24 07:30 01/05/24 08:37 01/05/24 07:30
I&O
01/04/24 01/05/24 01/06/24
06:59 06:59 06:59
Intake Total 600 / 600
Balance 600 / 600
Review of Systems
-
Constitutional: Denies Fever
EENT: Denies Sore Throat
Neuro: Denies Dizzy
Physical Exam
-
General: No Apparent Distress
HEENT: Moist Mucous Membranes
Respiratory: Clear to Auscultation
Cardiac: Regular Rhythm and S1/S2
GI: Soft
Neuro: AO x 3
Psych: Calm
Data Reviewed
-
Labs: Labs Reviewed by me
--- NOTE | 2024-01-05 11:32 | W.DS.TRANS ---
DC Summary - [employer]
-
Discharge Instructions:
Discharge Diagnosis/Procedures Acute COVID-19 infection, acute transaminitis
suspected COVID-related
Diet 2 Gram Sodium
Activity As tolerated
Driving Restrictions No driving
Bathing Restrictions None
Blood Work CMP in one week
Other Services PT,OT
Instructions:
Stand-Alone Forms:
Changes to Home Medications: Yes
Discharge Medications:
DC Medications w/original date entered in [employer]
ezetimibe 10 mg tablet 10 mg PO DAILY High Cholesterol 02/22/11
amiodarone 200 mg tablet 200 mg PO DAILY Arrhythmia 01/02/24
apixaban 5 mg tablet (Eliquis) 5 mg PO BID Blood Clot Prevention/Tx 01/02/24
atorvastatin 40 mg tablet 40 mg PO HS High Cholesterol 01/02/24
levothyroxine 25 mcg tablet 25 mcg PO DAILY Thyroid 01/02/24
metoprolol tartrate 100 mg tablet 100 mg PO BID Blood Pressure 01/02/24
losartan 25 mg tablet 50 mg (2 x 25 mg) PO DAILY Blood Pressure #1 tab 01/05/24
molnupiravir 200 mg capsule (EUA) (Lagevrio) 800 mg (4 x 200 mg) PO BID #6 caps 01/05/24
Home Medication Changes
New medication-Molnupiravir
Dose change - increased dose of Losartan
Pending Results: No
--- NOTE | 2024-01-05 11:35 | W.PN.UPDATE ---
Update Note
Progress Note Update
LFTs trending down
Primary team plans dc today
recd repeat LFTs 1 week outpatient with PCP
GI will sign off pls call with ?s
--- NOTE | 2024-01-05 11:43 | W.PN.GI.CBS2 ---
Today's Communication / Plan
-
proved with improved LFT's
family looking for rehab
agree with LFT's follow up 1 week add GI follow up if not resolving
hepatitis panel neg
discharge planning will sign off call with questions
family updated
Assessment / Plan
-
Pt is a 83yo present with hx CHF, afib on Eliquis, orthostatic hypotension, DM type II, [place], HTN, COPD, GERD, CVA presents with severe weakness with decreased oral intake over weekend. On admission noted + covid with initial LFT's with bili 1.2,
AST 100, ALT 87, alk phos 79. However after admission patient with further rise in LFT's to bili 1.4, AST 601, alt 511, and alk phos 71. 4/2 US with cholelithiasis and renal cyst.
-increased LFT's
-covid +
-diffuse weakness
-mild thrombocytopenia
-cholelithiasis
-hx orthostatic hypotension on chronic midodrine last 2 years
other medical problems:
-afib on Eliquis
-CHF
-DM
-HTN
-COPD
-GERD
-CVA
Laboratory Tests
01/02/24 01/03/24 01/04/24
14:18 06:36 04:26
Total Bilirubin 1.2 1.4 H 1.0
Direct Bilirubin 0.5 H
AST 100 H 601 H* 463 H
ALT 87 H 511 H* 535 H*
Alkaline Phosphatase 79 71 73
PLAN:
etiology of increased LFT's unclear --no documented hypotension but did miss midodrine with hx orthostatic hypotension AM of admission with possible shock liver vs covid related vs other
US abdomen stable with cholelithiasis no not duct dilation and continued no pain on exam
pt improved with improved LFT's
family looking for rehab
agree with LFT's follow up 1 week add GI follow up if not resolving
hepatitis panel neg
discharge planning will sign off call with questions
family updated
Subjective
Subjective
Date of Service: January 05, 2024
pt improving with mental status and eating, still weak but improving
Objective
Data Reviewed
Laboratory Data:
Laboratory Results
01/04/24 04:26
01/05/24 07:12
Laboratory Results
PT 17.0 Sec (11.4-14.6) H 01/04/24 04:26
INR 1.40 01/04/24 04:26
Total Bilirubin 1.1 mg/dl (0.2-1.3) 01/05/24 07:12
AST 234 U/L (14-36) H 01/05/24 07:12
ALT 389 U/L (0-35) H 01/05/24 07:12
Alkaline Phosphatase 80 U/L (38-126) 01/05/24 07:12
Vital Signs and I&O:
Vital Signs
Temp Pulse Resp BP Pulse Ox
98.6 F 84 24 132/72 94
01/05/24 07:30 01/05/24 08:37 01/05/24 07:30 01/05/24 08:37 01/05/24 07:30
I&O
01/04/24 01/05/24 01/06/24
06:59 06:59 06:59
Intake Total 600 / 600
Balance 600 / 600
Physical Exam
Physical Exam
HEENT: Anicteric and Moist mucous membranes
Cardiology: Normal Sinus Rhythm
Pulmonary: Clear
GI: Soft, Non Distended and Non Tender
Extremities: No Edema
Neuro: Non Focal
--- NOTE | 2024-01-05 12:11 | W.PN.ID1 ---
Date of Service
Date of Service: January 05, 2024
Today's Communication
Continue molnupiravir 800mg po bid to complete 5 days through 01/08/24 am dose.
ID signing off.
Assessment / Plan
# Symptomatic mild COVID infection. Clincially improving
-Symptom onset 01/02/2024
-COVID + 01/03/24
- CXR normal.
-Oxygenating well.
- Avoid Paxlovid due to drug-drug interaction with her meds.
- Continue molnupiravir 800mg po bid to complete 5 days through 01/08/24 am dose.
# Acute transaminitis - likely due to COVID
LFT's continues to trend down
Abd US: cholelithiasis
# Additional Past Medical History:
Diabetes mellitus type 2
Hypertension
Dyslipidemia
COPD
CVA
CHF
Chief Complaint
-: Other (COVID)
Subjective / Review of Systems
Has more energy today.
Appetite improved.
Going to rehab.
Vital Signs / Physical Exam
Vital Signs
Vital Signs
Temp Pulse Resp BP Pulse Ox
98.6 F 84 24 132/72 94
01/05/24 07:30 01/05/24 08:37 01/05/24 07:30 01/05/24 08:37 01/05/24 07:30
Physical Exam
Constitutional: No Acute Distress and Comfortable
Pulmonary: Clear
Gastrointestinal: Soft, Non Tender and Non Distended
Neurological: AO x 3
Objective Data
Lab Data
Lab Results
01/04/24 04:26
01/05/24 07:12
PT 17.0 Sec (11.4-14.6) H 01/04/24 04:26
INR 1.40 01/04/24 04:26
Estimated Creat Clear 67 ml/min 01/05/24 07:12
Total Bilirubin 1.1 mg/dl (0.2-1.3) 01/05/24 07:12
AST 234 U/L (14-36) H 01/05/24 07:12
ALT 389 U/L (0-35) H 01/05/24 07:12
Alkaline Phosphatase 80 U/L (38-126) 01/05/24 07:12
Most recent labs reviewed.
Micro Results:
01/02/24 14:18 Influenza Types A & B (PAM) - Final
Nasal Swab Negative for Influenza A & B, NAAT
Negative results must be combined with clinical observations
and patient history.
Nucleic Acid Amplification test (NAAT)performed on the
[employer] platform.
01/02/24 CXR: No evidence of active cardiopulmonary disease.
01/02/[address]: No evidence of acute intracranial abnormality.
--- NOTE | 2024-01-05 15:44 | CM ---
Patient with dx Covid.
Spoke with with daughter Lisa [phone] and daughter Maribel out in the [place].
Per daughters they discussed skilled rehab with CM yesterday and options given for referrals.
This CM went over options again and placed referrals in [facility].
Family aware options limited due to diagnosis of Covid.
MD updated.
Plan:Skilled rehab when bed available, patient needs facility that will accept Covid.
Patient has not PCP.
[2024-01-05 16:03] VITALS: BP 160/71
[2024-01-05 23:45] VITALS: BP 165/72; BP 173/70; PULSE 73; PULSE 83
[2024-01-06] VITALS (7 sets, daily range): BP systolic 146–207; BP diastolic 67–90; PULSE 60–75; O2SAT 96; BMI 30.2
[2024-01-06] MEDS: SYNTHROID 25 MCG PO (06:14)
[2024-01-06] MEDS: PACERONE 200 MG PO (10:05)
[2024-01-06] MEDS: ELIQUIS 5 MG PO ×2 (10:06→20:27)
[2024-01-06] MEDS: COZAAR 25 MG PO ×2 (10:06→11:53)
[2024-01-06] MEDS: ZETIA 10 MG PO (10:06)
[2024-01-06] MEDS: LOPRESSOR 100 MG PO ×2 (10:06→20:27)
[2024-01-06] MEDS: MOLNUPIRAVIR (EUA) 800 MG PO ×2 (10:12→20:27)
--- NOTE | 2024-01-06 11:26 | W.PN.HOSP.TC ---
Today's Communication/Plan
-
DC planning
Assessment / Plan
Assessment / Plan
# COVID infection
-Influenza negative
-Chest x-ray no evidence of cardiopulmonary disease
-Patient not hypoxic
-CT head shows no acute abnormality
-PT/OT
-cw antiviral for 5 days per ID till 01/07 .
# Acute Transaminitis which is worsening. Significant rise. No GI symptoms.
-COVID-19 can cause transaminitis but elevation is significant and would evaluate further. ultrasound of the biliary tract shows no biliary obstruction. Cholelithiasis noted. Improving LFTs. Possibly related to viral infection. Repeat next
week. Appreciate GI input. Hold statins till next blood test.
History of type II [place]
-Continue aspirin
Chronic HFpEF-clinically compensated
Essential hypertension
- Continue metoprolol, increase losartan
- Hold Midodrine with supine hypertension
Hypercholesterolemia
-Continue Zetia, hold statins
COPD
-Continue Advair, Spiriva
GERD
-Continue omeprazole
History of CVA
-Continue aspirin,hold statin
Full code
DVT prophylaxis�heparin
Regular diet
DW daughter today at bedside
PT recommends rehab
CM to look into disposition
Medically stable for DC
Anticipated Discharge: Within 24 hours
Subjective/Interval History
-
Date of Service: January 06, 2024
No fever or chills. No shortness of breath.
Tolerating diet.
Objective Data
-
Vital Signs:
Vital Signs
Temp Pulse Resp BP Pulse Ox
98.4 F 75 20 179/86 95
01/06/24 07:30 01/06/24 07:30 01/06/24 07:30 01/06/24 07:30 01/06/24 07:30
I&O
01/05/24 01/06/2424
06:59 06:59 06:59
Intake Total 600 / 600 480 / 480
Balance 600 / 600 480 / 480
Review of Systems
-
Constitutional: Denies Fever
EENT: Denies Sore Throat
Respiratory: Denies Cough
Abdomen/GI: Denies Diarrhea
Neuro: Denies Dizzy
Physical Exam
-
General: No Apparent Distress
HEENT: Moist Mucous Membranes
Respiratory: Clear to Auscultation
Cardiac: Regular Rhythm and S1/S2
GI: Soft and Nontender
Neuro: AO x 3
Psych: Calm
--- NOTE | 2024-01-06 12:43 | CM ---
Addendum entered by Ruth Meadows 01/06/24 15:57:
Additional facilities (P).
Discussed possibly of going to a skilled facility in [place].
Also discussed home with VN.
Patient does not have a PCP in [place], but does have one in [place].
Spoke with Diane from [facility], if patient decides to use [facility] and go home with home care, they would be able to use the [place] PCP if the PCP is agreeable. Family updated.
Plan: home with VN vs skilled rehab.
Original Note:
Discussed d/c planning with patients daughters.
The facilities patient has been accepted to are not agreeable to family.
Additional referrals to be sent.
Family aware that patient cannot stay in the hospital until the facility they want has a bed available.
Family aware we will continue bed search.
Medicare[employer]gov list given to daughters.
PT to se later today.
Family thinks patient is too sick and weak for d/c. CM explained IMM to daughters.
Plan: skilled rehab when medically stable and bed available.
--- NOTE | 2024-01-06 14:00 | PTCARENOTE ---
SHERINE noted to be edematous, reggie INT access site. Dr. Rodriguez notified. IV access removed, no IV access---MD aware.
[2024-01-07 06:00] VITALS: BMI 30.2
[2024-01-07] MEDS: SYNTHROID 25 MCG PO (06:36)
[2024-01-07 07:30] VITALS: BP 188/76
[2024-01-07] MEDS: COZAAR 50 MG PO (11:21)
[2024-01-07] MEDS: ELIQUIS 5 MG PO ×2 (11:21→20:10)
[2024-01-07] MEDS: LOPRESSOR 100 MG PO ×2 (11:21→20:10)
[2024-01-07] MEDS: ZETIA 10 MG PO (11:21)
[2024-01-07] MEDS: PACERONE 200 MG PO (11:21)
[2024-01-07] MEDS: MOLNUPIRAVIR (EUA) 800 MG PO ×2 (11:24→20:18)
[2024-01-07 12:35] VITALS: BP 171/68
[2024-01-07] MEDS: APRESOLINE 5 MG IV (12:45)
--- NOTE | 2024-01-07 13:07 | W.PN.HOSP.TC ---
Today's Communication/Plan
-
Ongoing dc efforts
Assessment / Plan
Assessment / Plan
# COVID infection
-Influenza negative
-Chest x-ray no evidence of cardiopulmonary disease
-Patient not hypoxic
-CT head shows no acute abnormality
-PT/OT
-cw antiviral for 5 days per ID till 01/07 .
# Acute Transaminitis which is worsening. Significant rise. No GI symptoms.
-COVID-19 can cause transaminitis but elevation is significant and would evaluate further. ultrasound of the biliary tract shows no biliary obstruction. Cholelithiasis noted. Improving LFTs. Possibly related to viral infection. Repeat next
week. Appreciate GI input. Hold statins till next blood test.
History of type II [place]
-Continue aspirin
Chronic HFpEF-clinically compensated
Essential hypertension
- Continue metoprolol, increase losartan
- Hold Midodrine with supine hypertension
Hypercholesterolemia
-Continue Zetia, hold statins
COPD
-Continue Advair, Spiriva
GERD
-Continue omeprazole
History of CVA
-Continue aspirin,hold statin
Full code
DVT prophylaxis�heparin
Regular diet
DW daughter today at bedside
PT recommends rehab
CM to look into disposition
Medically stable for DC
Anticipated Discharge: Within 24 hours
Subjective/Interval History
-
Date of Service: January 07, 2024
Feels improved
Objective Data
-
Vital Signs:
Vital Signs
Temp Pulse Resp BP Pulse Ox
98.1 F 62 18 188/76 94
01/07/24 07:30 01/07/24 07:30 01/07/24 07:30 01/07/24 07:30 01/07/24 07:30
I&O
01/06/24 01/07/24 01/08/24
06:59 06:59 06:59
Intake Total 480 / 480 500 / 500
Balance 480 / 480 500 / 500
Review of Systems
-
EENT: Denies Sore Throat
Respiratory: Denies Cough or Trouble Breathing
Cardiac: Denies Chest Pain
Abdomen/GI: Denies Nausea or Vomiting
Neuro: Denies Dizzy
Physical Exam
-
General: No Apparent Distress
HEENT: Moist Mucous Membranes
Respiratory: Clear to Auscultation
Cardiac: Regular Rhythm and S1/S2
Neuro: Awake, Alert and Oriented
Psych: Calm
--- NOTE | 2024-01-07 15:18 | PTCARENOTE ---
Patient's daughters at the bedside since early this am. Daughters assist patient to BSC/chair and assist with feeding. Patient tolerated sitting in chair for all meals. Patient voiding on BSC and stress incontinence from coughing.
[2024-01-07 16:27] VITALS: BP 149/65
[2024-01-07] MEDS: TYLENOL 650 MG PO (19:47)
[2024-01-07 23:00] VITALS: BP 157/59
[2024-01-08] MEDS: SYNTHROID 25 MCG PO (05:59)
[2024-01-08 06:00] VITALS: BMI 30.5
[2024-01-08 07:15] VITALS: BP 205/100
[2024-01-08] MEDS: PACERONE 200 MG PO (08:32)
[2024-01-08] MEDS: LOPRESSOR 100 MG PO ×2 (08:32→19:57)
[2024-01-08] MEDS: ZETIA 10 MG PO (08:32)
[2024-01-08] MEDS: ELIQUIS 5 MG PO ×2 (08:32→19:57)
[2024-01-08] MEDS: MOLNUPIRAVIR (EUA) 800 MG PO (08:32)
[2024-01-08] MEDS: COZAAR 50 MG PO ×2 (08:32→19:56)
[2024-01-08 09:48] VITALS: BP 186/92
[2024-01-08] MEDS: APRESOLINE 5 MG IV ×2 (10:02→17:11)
[2024-01-08 11:00] VITALS: BP 154/76
--- NOTE | 2024-01-08 11:24 | CM ---
CM spoke with patients daughter, Jace, provided CM with rehab in [place] she has spoken to and are able to accept patient, clinicals faxed to [facility] (fax: [phone]), attention Jodie Salguero. Daughter inquiring about medical transport
from [facility] to [place], reports she has spoken with [facility] but will not have an answer until Tuesday. CM will continue to follow for discharge planning needs.
Plan; referral sent for [facility], [place] SNF, looking into transport.
--- NOTE | 2024-01-08 13:16 | W.PN.HOSP.TC ---
Today's Communication/Plan
-
Ongoing disposition efforts
Assessment / Plan
Assessment / Plan
# COVID infection
-Influenza negative
-Chest x-ray no evidence of cardiopulmonary disease
-Patient not hypoxic
-CT head shows no acute abnormality
-PT/OT
-cw antiviral for 5 days per ID till 01/07 .
# Acute Transaminitis which is worsening. Significant rise. No GI symptoms.
-COVID-19 can cause transaminitis but elevation is significant and would evaluate further. ultrasound of the biliary tract shows no biliary obstruction. Cholelithiasis noted. Improving LFTs. Possibly related to viral infection. Repeat next
week. Appreciate GI input. Hold statins till next blood test.
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
-Continue aspirin
Chronic HFpEF-clinically compensated
Essential hypertension
- Continue metoprolol, increase losartan to BID
- Hold Midodrine with supine hypertension
Hypercholesterolemia
-Continue Zetia, hold statins
COPD
-Continue Advair, Spiriva
GERD
-Continue omeprazole
History of CVA
-Continue aspirin,hold statin
Full code
DVT prophylaxis�heparin
Regular diet
DW daughters today at bedside -they are looking into rehab closer to home in [place].
PT recommends rehab
CM to look into disposition
Medically stable for DC
Anticipated Discharge: Within 24 hours
Subjective/Interval History
-
Date of Service: January 08, 2024
Patient feels okay. Denies any cough, sore throat or shortness of breath. No chest pain.
According to RN-tolerating diet. No overnight events.
Objective Data
-
Vital Signs:
Vital Signs
Temp Pulse Resp BP Pulse Ox
97.6 F 62 16 186/92 93
01/08/24 07:15 01/08/24 09:48 01/08/24 07:15 01/08/24 09:48 01/08/24 07:15
I&O
01/07/24 01/08/24 01/09/24
06:59 06:59 06:59
Intake Total 500 / 500 100 / 100
Balance 500 / 500 100 / 100
Review of Systems
-
Abdomen/GI: Denies Abdominal Pain, Nausea or Vomiting
Neuro: Denies Dizzy or Headache
Physical Exam
-
General: No Apparent Distress
HEENT: Moist Mucous Membranes
Respiratory: Clear to Auscultation
Cardiac: Regular Rhythm and S1/S2
GI: Soft and Nontender
Neuro: Awake, Alert and Oriented
Psych: Calm
[2024-01-08] MEDS: TYLENOL 650 MG PO (13:19)
[2024-01-08] MEDS: TUMS 2 TABLET PO (14:34)
--- NOTE | 2024-01-08 14:59 | PTCARENOTE ---
Pt reporting some acid reflux symptoms w small amount of vomit. TT to Dr. Rodriguez to request TUMS. Order rec'd and given w relief noted.
[2024-01-08 16:52] VITALS: BP 176/68
[2024-01-08 18:33] VITALS: BP 124/51
--- NOTE | 2024-01-08 18:34 | PTCARENOTE ---
Pt with continued high BP's... @ 0700- 205/100, recheck after AM meds- 186/92, PRN hydralazine given for SBP>160 @ 1000... recheck @ 1100- 154/76... Dr. Rodriguez increased Cozaar to BID (from daily)... recheck 1645- 176/68... TT to Dr. Rodriguez--- order
to give hydralazine again... given PRN @ 1711... re-check @ 1830- 124/51. Scheduled Metoprolol and Cozaar ordered at 1999. Plan of care on going.
[2024-01-08 23:35] VITALS: BP 148/53
[2024-01-09 06:00] VITALS: BMI 30.1
[2024-01-09] MEDS: SYNTHROID 25 MCG PO (06:29)
[2024-01-09] MEDS: COZAAR 50 MG PO (08:14)
[2024-01-09] MEDS: ELIQUIS 5 MG PO (08:14)
[2024-01-09] MEDS: ZETIA 10 MG PO (08:14)
[2024-01-09] MEDS: LOPRESSOR 100 MG PO (08:15)
[2024-01-09] MEDS: PACERONE 200 MG PO (08:15)
--- NOTE | 2024-01-09 08:16 | W.DS.TRANS ---
DC Summary - Failure Analysis Technician
-
Discharge Instructions:
Discharge Diagnosis/Procedures Acute COVID-19 infection, acute transaminitis
suspected COVID-related
Diet 2 Gram Sodium
Activity As tolerated
Driving Restrictions No driving
Bathing Restrictions None
Blood Work CMP in one week
Other Services PT,OT
Instructions:
Stand-Alone Forms:
Changes to Home Medications: Yes
Discharge Medications:
DC Medications w/original date entered in [facility]
ezetimibe 10 mg tablet 10 mg PO DAILY High Cholesterol 02/22/11
amiodarone 200 mg tablet 200 mg PO DAILY Arrhythmia 01/02/24
apixaban 5 mg tablet (Eliquis) 5 mg PO BID Blood Clot Prevention/Tx 01/02/24
atorvastatin 40 mg tablet 40 mg PO HS High Cholesterol 01/02/24
levothyroxine 25 mcg tablet 25 mcg PO DAILY Thyroid 01/02/24
metoprolol tartrate 100 mg tablet 100 mg PO BID Blood Pressure 01/02/24
losartan 50 mg tablet 50 mg PO BID #60 tabs 01/09/24
Home Medication Changes
Change in medication - Losartan dose increased to BID; Statins kept on hold till next CMP blood test
Pending Results: No
[2024-01-09 08:19] VITALS: BP 175/77
--- NOTE | 2024-01-09 08:27 | W.PN.HOSP.TC ---
Today's Communication/Plan
-
DC
Assessment / Plan
Assessment / Plan
# COVID infection
-Influenza negative
-Chest x-ray no evidence of cardiopulmonary disease
-Patient not hypoxic
-CT head shows no acute abnormality
-PT/OT
-cw antiviral for 5 days per ID till 01/07 .
- No respiratory symptoms or signs
# Acute Transaminitis which is worsening. Significant rise. No GI symptoms.
-COVID-19 can cause transaminitis but elevation is significant and would evaluate further. ultrasound of the biliary tract shows no biliary obstruction. Cholelithiasis noted. Improving LFTs. Possibly related to viral infection. Repeat next
week. Appreciate GI input. Hold statins till next blood test. DW daughters again today at bedside.
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
-Continue aspirin
Chronic HFpEF-clinically compensated
Essential hypertension
- Continue metoprolol, increased losartan to BID
- Hold Midodrine with supine hypertension
Hypercholesterolemia
-Continue Zetia, hold statins
COPD
-Continue Advair, Spiriva
GERD
-Continue omeprazole
History of CVA
-Continue aspirin,hold statin
Full code
DVT prophylaxis�heparin
Regular diet
Medically stable for DC
PT recommends rehab
More than 30 minutes spent in discharge including
Final examination of the patient
Summarizing hospital stay
Instructions for continuing care to all relevant caregivers
Preparation of discharge records, prescriptions, and referral forms
Total time spent (in minutes): 35
Anticipated Discharge: Today
Subjective/Interval History
-
Date of Service: January 09, 2024
Patient all dressed and ready for a ride to rehab in [place].
2 daughters are very to drive her to [place] rehab.
The daughter see her stable and without any complaints.
Patient voices no specific complaints today.
Objective Data
-
Vital Signs:
Vital Signs
Temp Pulse Resp BP Pulse Ox
98.1 F 60 16 175/77 93
01/09/24 08:19 01/09/24 08:19 01/09/24 08:19 01/09/24 08:19 01/09/24 08:19
I&O
01/08/24 01/09/24 01/10/24
06:59 06:59 06:59
Intake Total 1060 / 1060
Balance 1060 / 1060
Review of Systems
-
EENT: Denies Sore Throat
Respiratory: Denies Cough or Trouble Breathing
Cardiac: Denies Chest Pain
Abdomen/GI: Denies Nausea or Vomiting
Neuro: Denies Dizzy or Headache
Physical Exam
-
General: No Apparent Distress
HEENT: Moist Mucous Membranes
Respiratory: Clear to Auscultation
Cardiac: Regular Rhythm and S1/S2; Negative Tachycardic
GI: Soft and Nontender
Neuro: AO x 3; Negative No Motor Deficits (moving all 4 limbs ,did not examine fully as she is ready and seated in her chair), Slurred Speech or Facial Droop
Psych: Calm
--- NOTE | 2024-01-09 08:50 | W.DCSUMMARY ---
Discharge Summary
Discharge Data
Date of Admission: 01/05/24
Date of Discharge: 01/09/24
-
Pending Results: No
Hospital Course
Primary diagnosis:
Acute COVID-19 infection
Acute transaminitis suspected lateral infection related
Secondary diagnosis:
Essential hypertension
Chronic heart failure with preserved EF. Coronary artery disease with prior myocardial infarction
Hyperlipidemia
Chronic obstructive pulmonary disease
History of cerebrovascular accident
Hospital course:
83-year-old lady presented with severe weakness. Weakness was rather acute. She was also lethargic. There is decreased p.o. intake. She had a sore throat and bodyaches with slight cough. Household members also had similar respiratory symptoms.
They did not test themselves for COVID-19.
Patient was positive for COVID-19 on admission. No evidence of pneumonia. Influenza testing was negative. She was not hypoxic. Was seen by infectious disease who felt not a candidate for Paxlovid but was candidate for molnupiravir 800mg po bid
and she completed 5 days course.
There is also elevated AST and ALT. She was asymptomatic without GI symptoms. Abdomen was benign. Ultrasound showed cholelithiasis but no biliary obstruction. Was seen by GI. [place] probably viral related. LFTs were coming down prior to
discharge. They were not completely down to normal yet. Advised to hold statin and follow-up CMP in a week.
Her blood pressure was elevated unclear why she was on midodrine. It was stopped because of supine hypertension. She was continued on metoprolol. In fact her dose of losartan was increased from 50 mg once a day to twice a day to optimize the
blood pressure.
Family wanted to take her back to [place] where she is from and they found a rehab locally in [place].
Consultants on board:
ID Dr. Hernández
Discharge Plan
-
Patient Disposition: [facility]/SNF
Discharge Diagnosis/Procedures: Acute COVID-19 infection, acute transaminitis suspected COVID-related
Diet: 2 Gram Sodium
Activity: As tolerated
Driving Restrictions: No driving
Bathing Restrictions: None
Blood Work: CMP in one week
Other Services: PT and OT
Referrals:
NONE,* [Family Provider] -
Lynn Vallejo MD [Active] - (return to GI if liver function do not normalize )
Prescriptions:
New
losartan 50 mg Tablet
50 mg PO BID Qty: 60 0RF
Rx Instructions:
dose increased to BID on this admission
Continued
ezetimibe 10 MG tablet
10 mg PO DAILY
metoprolol tartrate 100 mg Tablet
100 mg PO BID
amiodarone 200 mg Tablet
200 mg PO DAILY
levothyroxine 25 mcg Tablet
25 mcg PO DAILY
Eliquis 5 mg Tablet
5 mg PO BID
Held
atorvastatin 40 MG tablet
40 mg PO HS
Hold Instructions: Resume on 02/02/24.
Discontinued
losartan 25 mg Tablet
25 mg PO DAILY
midodrine 2.5 mg Tablet
2.5 mg PO TID
Discharge Orders:
Discharge Patient (As Directed); Ordered 01/09/24
Ordered By: Raimundo Rodriguez
Discharge Date and Time
Print Language: BAHAMIAN
--- NOTE | 2024-01-09 08:53 | CM ---
Addendum entered by Ruth Meadows 01/09/24 10:37:
IMM reviewed with daughter Lisa.
Addendum entered by Ruth Meadows 01/09/24 10:12:
TC from kati Feliciano approved for acute rehab at [facility] in [place].
Family will transport.
[facility]
Report# [phone]

Original Note:
TC to [facility] in [place] P#[phone], CM given P# [phone] to call.
Transferred to Jordi in admissions, he works with Jodie Salguero who is out of the office at this time. Jordi does not know about the admission.
He will have Jodie contact ALIVIA.
ALIVIA spoke with daughter Lisa at [phone] updated her re above. Per daughter, they will transport patient via car.
Await verification from facility that patient has been accepted.
Plan: skilled rehab when bed confirmed.
== END 2024-01-09 09:01 | DRG 178 ==
LOC: 4 WEST ACU 08:52
PROVIDERS: Emergency Medicine; Nurse Practitioner Adult Health; Physician Assistant; ADMITTING PHYSICIAN Hospitalist; ATTENDING PHYSICIAN Internal Medicine; CONSULT PHYSICIAN Internal Medicine Gastroenterology; CONSULT PHYSICIAN Internal Medicine Infectious Disease; EMERGENCY PHYSICIAN Emergency Medicine
DX: U07.1 COVID-19 (principal); I50.32 Chronic diastolic (congestive) heart failure; R74.01 Elevation of levels of liver transaminase levels; I11.0 Hypertensive heart disease with heart failure; I25.10 Atherosclerotic heart disease of native coronary artery without angina pectoris; E78.00 Pure hypercholesterolemia, unspecified; J44.9 Chronic obstructive pulmonary disease, unspecified; I48.91 Unspecified atrial fibrillation; K21.9 Gastro-esophageal reflux disease without esophagitis; I25.2 Old myocardial infarction; Z86.73 Personal history of transient ischemic attack (TIA), and cerebral infarction without residual deficits; Z79.01 Long term (current) use of anticoagulants; Z79.82 Long term (current) use of aspirin
CPT/HCPCS: 70450; 71046; 76700; 80053; 81003; 82248; 82805; 84443; 84484; 85025; 85027; 85610; 86704; 86705; 86706; 86708; 86709; 86803; 87340; 87502; 87811; 93005; 96360; 96361; 97163; 97530; 97535; 99285